=== PATIENT | female | born 1970 | race Hispanic/Latino ===

== ENCOUNTER 2017-01-22 10:04 | Emergency (ER) | payer SELFPAY ==
[2017-01-22] MEDS ORDERED: Pantoprazole 40 MG VIAL ONE (11:11)
[2017-01-22] MEDS ORDERED: Ketorolac Tromethamine 30 MG/ML VIAL ONE (11:11)
[2017-01-22] MEDS ORDERED: Ondansetron HCl/PF 4 MG/2 ML Vial ONE (11:11)
[2017-01-22 11:13] LABS: Anion Gap 15 mmol/L (10-20); BUN (Urea Nitrogen) 15 mg/dL (7.0-18.7); Calc. Creatinine Clearance 0 mL/min (70-130); Calcium 9.3 mg/dL (7.8-10.44); Carbon Dioxide 23 mmol/L (22-29); Chloride 105 mmol/L (98-107); Estimated GFR-MDRD 68; Glucose 129 mg/dL (70-105); Potassium 3.8 mmol/L (3.5-5.1); Sodium 139 mmol/L (136-145)
[2017-01-22 11:23] LABS: Clarity Clear (Clear); Glucose, Urine (Dipstick) Negative (Negative); Leukocyte Small (Negative); Nitrite Negative (Negative); Protein, Urine (Dipstick) Negative (Neg-Trace); pH, Urine 5.5 (5.0-9.0)
[2017-01-22 11:24] LABS: Bilirubin Negative (Negative); Blood, Urine Small (Negative); Urobilinogen 0.2 mg/dL (0.2-1.0)
[2017-01-22 11:26] LABS: Bacteria/HPF Rare-Few HPF (None Seen); RBC/HPF 0-3 HPF (0-3); Squamous Epithelial 0-3 HPF (0-3)
[2017-01-22 11:34] LABS: Eosinophils 2 % (0-10); Hemoglobin 13.3 g/dL (12.0-16.0); Lymphocytes 35 % (21-51); MDiff Complete? YES; Mean Corpuscular HGB CONC 33.1 g/dL (32.0-36.0); Mean Corpuscular Hemoglobin 29.1 pg (27.0-31.0); Mean Corpuscular Volume 87.9 fl (81.0-99.0); Mean Platelet Volume 9.4 fL (7.4-10.4); Monocytes 3 % (0-10); Neutrophil 44 % (42-75); PLT Morphology Comment Appears Adequate; Platelet Count 143 thou/uL (130-400); RBC Distribution Width 12.7 % (11.5-14.5); RBC Morphology Normal; Reactive Lymphocytes 16 % (0-10); Red Blood Cell (RBC) Count 4.56 mill/uL (4.20-5.40)
[2017-01-22] MEDS ORDERED: cefTRIAXone\\ROCEPHIN 1 GM VIAL ONE (11:37)
[2017-01-22] MEDS ORDERED: Lidocaine 1% 20 ML MDV ONE (11:37)
== END 2017-01-22 11:55 | disposition home or self-care (01) ==
LOC: MADERS 10:04
DX: K80.50 Calculus of bile duct without cholangitis or cholecystitis without obstruction (principal); M19.90 Unspecified osteoarthritis, unspecified site; F32.9 Major depressive disorder, single episode, unspecified; F41.9 Anxiety disorder, unspecified
CPT/HCPCS: 80048; 81003; 81015; 82150; 85025; 96372; 96374; 96375; C9113; J0696; J1885; J2001; J2405

== ENCOUNTER 2017-02-22 04:23 | Emergency (ER) | payer SELFPAY ==
[2017-02-22] MEDS ORDERED: Acetaminophen/Codeine 30-300mg Tablet ONE (04:42)
== END 2017-02-22 04:53 | disposition home or self-care (01) ==
LOC: MADERS 04:23
DX: M79.602 Pain in left arm (principal); M79.601 Pain in right arm; F41.9 Anxiety disorder, unspecified; F31.9 Bipolar disorder, unspecified
CPT/HCPCS: 99283

== ENCOUNTER 2017-10-20 23:06 | Emergency (ER) | payer SELFPAY ==
[2017-10-20] MEDS ORDERED: Famotidine 20 MG TAB ONE (23:27)
[2017-10-20] MEDS ORDERED: diphenhydrAMINE 25 MG CAP ONE (23:27)
[2017-10-20] MEDS ORDERED: methylPREDNISolone Sod Succ/PF 125 MG/2 ML VIAL ONE (23:27)
== END 2017-10-20 23:59 | disposition home or self-care (01) ==
LOC: MADERS 23:06
DX: T78.40XA Allergy, unspecified, initial encounter (principal); G43.909 Migraine, unspecified, not intractable, without status migrainosus; F41.9 Anxiety disorder, unspecified; F32.9 Major depressive disorder, single episode, unspecified; Z79.899 Other long term (current) drug therapy
CPT/HCPCS: 96372; J2930